=== PATIENT | female | born 1940 | race Caucasian/White ===

== ENCOUNTER → 2016-08-27 | Outpatient (CLI) | payer OTHER | LOC: FIMAGING 11:56 | PROVIDERS: ATTEND Physician Assistant Surgical | DX: M51.36 Other intervertebral disc degeneration, lumbar region (principal); M51.35 Other intervertebral disc degeneration, thoracolumbar region; M43.16 Spondylolisthesis, lumbar region; M12.88 Other specific arthropathies, not elsewhere classified, other specified site; M48.06 Spinal stenosis, lumbar region; M48.05 Spinal stenosis, thoracolumbar region; M99.73 Connective tissue and disc stenosis of intervertebral foramina of lumbar region; M51.26 Other intervertebral disc displacement, lumbar region ==

== ENCOUNTER → 2016-11-19 | Outpatient (CLI) | payer OTHER | LOC: FIMAGING 14:43 | PROVIDERS: ATTEND Family Medicine | DX: R91.1 Solitary pulmonary nodule (principal) ==

== ENCOUNTER → 2017-03-24 | Outpatient (CLI) | payer OTHER | LOC: FIMAGING 13:56 | PROVIDERS: ATTEND Family Medicine | DX: Z12.31 Encounter for screening mammogram for malignant neoplasm of breast (principal); Z80.3 Family history of malignant neoplasm of breast | CPT/HCPCS: G0202-52 ==

== ENCOUNTER 2017-09-29 17:47 | Inpatient (IN) | payer OTHER ==
[2017-09-29] MEDS ORDERED: NS 1,000 ML IV ONE (17:58)
[2017-09-29] MEDS ORDERED: IPRATROPIUM/ALBUTEROL 3 ML DEYVIAL IH ONE (17:58)
[2017-09-29] MEDS ORDERED: methylPREDNISolone SOD SUCC 125 MG/2 ML VIAL IVP ONE (17:58)
--- NOTE | 2017-09-29 18:01 | EDPHY ---
H & P Stated Complaint: hypoxia Time Seen by Provider: 09/29/17 17:52 HPI/ROS: CHIEF COMPLAINT: Pneumonia HISTORY OF PRESENT ILLNESS: The patient is a 77-year-old female with a history of COPD who wears 3 L of oxygen at baseline. She states that over last couple of days she has had to turn it up. She has not been febrile had a cough for chills. She presented to the urgent care today hers oxygen saturations were in the 70s. Chest x-ray revealed right upper and right lower lobe infiltrates. She was transferred here. She also complains of being very thirsty. She denies chest pain. REVIEW OF SYSTEMS: Constitutional: denies: chills, fever, recent illness, recent injury EENTM: denies: blurred vision, double vision, nose congestion Respiratory: See HPI Cardiac: denies: chest pain, irregular heart rate, lightheadedness, palpitations Gastrointestinal/Abdominal: denies: abdominal pain, diarrhea, nausea, vomiting, blood streaked stools Genitourinary: denies: dysuria, frequency, hematuria, pain Musculoskeletal: denies: joint pain, muscle pain Skin: denies: lesions, rash, jaundice, bruising Neurological: denies: headache, numbness, paresthesia, tingling, dizziness, weakness Hematologic/Lymphatic: denies: blood clots, easy bleeding, easy bruising Immunologic/allergic: denies: HIV/AIDS, transplant EXAM: GENERAL: Well-appearing, well-nourished and in no acute distress. HEAD: Atraumatic, normocephalic. EYES: Pupils equal round and reactive to light, extraocular movements intact, sclera anicteric, conjunctiva are normal. ENT: TMs normal, nares patent, oropharynx clear without exudates. Slightly dry mucous membranes. NECK: Normal range of motion, supple without lymphadenopathy or JVD. LUNGS: Right lower lobe rhonchi, no wheezing HEART: Regular rate and rhythm without murmurs, rubs or gallops. ABDOMEN: Soft, nontender, normoactive bowel sounds. No guarding, no rebound. No masses appreciated. BACK: No CVA tenderness, no spinal tenderness, step-offs or deformities EXTREMITIES: Normal range of motion, no pitting or edema. No clubbing or cyanosis. NEUROLOGICAL: Cranial nerves II through XII grossly intact. Normal speech, normal gait. 5/5 strength, normal movement in all extremities, normal sensation PSYCH: Normal mood, normal affect. SKIN: Warm, dry, normal turgor, no visible rashes or lesions. Source: Patient Exam Limitations: No limitations - Personal History Current Tetanus/Diphtheria Vaccine: Unsure Current Tetanus Diphtheria and Acellular Pertussis (TDAP): Unsure Tetanus Vaccine Date: unsure - Medical/Surgical History Hx Asthma: No Hx Chronic Respiratory Disease: Yes Hx Diabetes: No Hx Cardiac Disease: No Hx Renal Disease: No Hx Cirrhosis: No Hx Alcoholism: No Hx HIV/AIDS: No Hx Splenectomy or Spleen Trauma: No Other PMH: emphysema,pulmonary nodule, spinal surgery 07/11/14, L knee surgery 2009, HTN, depression. chronic back pain. hypoxemia, osteoarthritis, osteoporosis,. htn, breast neoplasm -malignant - Family History Significant Family History: No pertinent family hx - Social History Smoking Status: Former smoker Alcohol Use: Sober Drug Use: None Constitutional: Initial Vital Signs Temperature (C) 37.0 C 09/29/17 17:54 Heart Rate 92 09/29/17 17:54 Respiratory Rate 18 09/29/17 17:54 Blood Pressure 130/68 H 09/29/17 17:54 O2 Sat (%) 82 L 09/29/17 17:54 O2 Delivery Mode Nasal Cannula O2 (L/minute) 3 Allergies/Adverse Reactions: Sulfa (Sulfonamide Antibiotics) Allergy (Mild, Verified 08/08/14 17:32) Rash Home Medications: Medication Instructions Recorded Alendronate Sodium [Fosamax 70 MG 70 mg PO MO@0700 06/20/14 (*)] Calcium Carb/Vitamin D3/Vit K1 2 tab PO DAILY 06/20/14 [Citracal Soft Chew] DULoxetine [Cymbalta 60 MG (*)] 60 mg PO DAILY@18 06/20/14 Levothyroxine [Synthroid 50 mcg 50 mcg PO DAILY06 06/20/14 (*)] Losartan Potassium [Cozaar] 100 mg PO DAILY 06/20/14 Multivitamins [Multivitamin (*)] 1 tab PO DAILY 06/20/14 Simvastatin [Zocor 10 mg] 10 mg PO HS 06/20/14 amLODIPine BESYLATE [Norvasc 10 mg 10 mg PO DAILY 06/20/14 (*)] morphINE IR [morphINE IR 15 mg (*)] 15 mg PO Q8H #0 tab 07/13/14 fentaNYL [Fentanyl] 50 mcg TD Q72H 07/28/14 Aspirin EC [Aspirin EC 81 mg (*)] 81 mg PO DAILY 09/29/17 Cyclobenzaprine [Flexeril] 10 mg PO TID PRN 09/29/17 Omeprazole 40 mg PO DAILY 09/29/17 Medical Decision Making - Diagnostics Imaging: I viewed and interpreted images myself ED Course/Re-evaluation: Reviewed the patient's x-rays which could early show right upper and lower lobe pneumonia. She has an increased oxygen requirement in a fever and elevated white blood cell count. She meets sepsis criteria but not severe sepsis criteria. She has received fluids and antibiotics. We have paged the medical service for admission. Differential Diagnosis: Partial list of the Differential diagnosis considered include but were not limited to; pneumonia, COPD exacerbation, bronchitis and although unlikely based on the history and physical exam, I also considered acute coronary disease , CHF. Critical Care Time: Critical care time spent by me, Dr. Davenport exclusive with this patient was 35 minutes, exclusive of the PA time exclusive of procedures. The organ system that was at risk was pulmonary and I gave IV fluids, antibiotics, consultation and admission to prevent worsening of the patient's condition - Data Points Laboratory Results: Laboratory Results 09/29/17 17:30 09/29/17 17:30 09/29/17 09/29/17 09/29/17 18:03 17:30 17:30 WBC RBC Hgb Hct MCV MCH MCHC RDW Plt Count MPV Neut % (Auto) Lymph % (Auto) [place] % (Auto) Eos % (Auto) Baso % (Auto) Nucleat RBC Rel Count Absolute Neuts (auto) Absolute Lymphs (auto) Absolute Monos (auto) Absolute Eos (auto) Absolute Basos (auto) Absolute Nucleated RBC Immature Gran % Immature Gran # PT 12.5 SEC SEC (12.0-15.0) INR 0.91 (0.83-1.16) APTT 28.0 SEC SEC (23.0-38.0) VBG Lactic Acid 0.9 mmol/L mmol/L (0.7-2.1) Sodium 134 mEq/L L mEq/L (135-145) Potassium 4.7 mEq/L mEq/L (3.5-5.2) Chloride 95 mEq/L L mEq/L (97-110) Carbon Dioxide 27 mEq/l mEq/l (22-31) Anion Gap 12 mEq/L mEq/L (8-16) BUN 18 mg/dL mg/dL (7-23) Creatinine 0.7 mg/dL mg/dL (0.6-1.0) Estimated GFR > 60 Glucose 94 mg/dL mg/dL (70-100) Calcium 9.6 mg/dL mg/dL (8.5-10.4) Total Bilirubin 1.1 mg/dL mg/dL (0.1-1.4) Conjugated Bilirubin 0.3 mg/dL mg/dL (0.0-0.5) Unconjugated Bilirubin 0.8 mg/dL mg/dL (0.0-1.1) AST 28 IU/L IU/L (14-46) ALT 32 IU/L IU/L (9-52) Alkaline Phosphatase 90 IU/L IU/L (38-126) Total Protein 7.3 g/dL g/dL (6.3-8.2) Albumin 4.4 g/dL g/dL (3.5-5.0) 09/29/17 17:30 WBC 16.08 10^3/uL H 10^3/uL (3.80-9.50) RBC 4.23 10^6/uL 10^6/uL (4.18-5.33) Hgb 11.8 g/dL L g/dL (12.6-16.3) Hct 35.6 % L % (38.0-47.0) MCV 84.2 fL fL (81.5-99.8) MCH 27.9 pg pg (27.9-34.1) MCHC 33.1 g/dL g/dL (32.4-36.7) RDW 16.5 % H % (11.5-15.2) Plt Count 311 10^3/uL 10^3/uL (150-400) MPV 9.5 fL fL (8.7-11.7) Neut % (Auto) 87.7 % H % (39.3-74.2) Lymph % (Auto) 5.6 % L % (15.0-45.0) [place] % (Auto) 5.0 % % (4.5-13.0) Eos % (Auto) 0.0 % L % (0.6-7.6) Baso % (Auto) 0.1 % L % (0.3-1.7) Nucleat RBC Rel Count 0.0 % % (0.0-0.2) Absolute Neuts (auto) 14.10 10^3/uL H 10^3/uL (1.70-6.50) Absolute Lymphs (auto) 0.90 10^3/uL L 10^3/uL (1.00-3.00) Absolute Monos (auto) 0.81 10^3/uL H 10^3/uL (0.30-0.80) Absolute Eos (auto) 0.00 10^3/uL L 10^3/uL (0.03-0.40) Absolute Basos (auto) 0.02 10^3/uL 10^3/uL (0.02-0.10) Absolute Nucleated RBC 0.00 10^3/uL 10^3/uL (0-0.01) Immature Gran % 1.6 % H % (0.0-1.1) Immature Gran # 0.25 10^3/uL H 10^3/uL (0.00-0.10) PT INR APTT VBG Lactic Acid Sodium Potassium Chloride Carbon Dioxide Anion Gap BUN Creatinine Estimated GFR Glucose Calcium Total Bilirubin Conjugated Bilirubin Unconjugated Bilirubin AST ALT Alkaline Phosphatase Total Protein Albumin Medications Given: Discontinued Medications Albuterol/Ipratropium (Duoneb) 3 ml IH EDNOW ONE Stop: 09/29/17 17:59 Last Admin: 09/29/17 18:14 Dose: 3 ml Sodium Chloride (Ns) 1,000 mls @ 0 mls/hr IV ONCE ONE; Wide Open PRN Reason: Protocol Stop: 09/29/17 17:59 Last Admin: 09/29/17 18:13 Dose: 1,000 mls Levofloxacin/Dextrose (Levaquin 750 Mg (Premix)) 150 mls @ 100 mls/hr IV EDNOW ONE PRN Reason: Protocol Stop: 09/29/17 19:27 Last Admin: 09/29/17 18:36 Dose: 150 mls Methylprednisolone Sodium Succinate (Solu-Medrol) 125 mg IVP EDNOW ONE Stop: 09/29/17 17:59 Last Admin: 09/29/17 18:14 Dose: 125 mg Departure - Departure Disposition: [facility] Inpatient Acute Clinical Impression: Pneumonia Qualifiers: Pneumonia type: due to unspecified organism Laterality: right Lung location: unspecified part of lung Qualified Code(s): J18.9 - Pneumonia, unspecified organism Sepsis Qualifiers: Sepsis type: sepsis due to unspecified organism Qualified Code(s): A41.9 - Sepsis, unspecified organism Condition: Fair
[2017-09-29 18:04] LABS: PLATELET COUNT 311 10^3/uL (150-400)
[2017-09-29 18:12] LABS: INR 0.91 (0.83-1.16); PROTIME(PATIENT) 12.5 SEC (12.0-15.0)
[2017-09-29] MEDS ORDERED: ONDANSETRON DISINTEGRATING 4 MG TAB PO PRN (19:10)
[2017-09-29] MEDS ORDERED: ONDANSETRON 4 MG/2 ML VIAL IVP PRN (19:10)
[2017-09-29] MEDS ORDERED: ACETAMINOPHEN 325 MG TAB PO PRN (19:10)
[2017-09-29] MEDS ORDERED: ALBUTEROL 3 ML DEYVIAL IH PRN (19:10)
[2017-09-29] MEDS ORDERED: NS 1,000 ML IV SCH (19:15)
--- NOTE | 2017-09-29 19:18 | PDGENHP ---
History and Physical - Chief Complaint SOB - History of Present Illness The patient is a 77-year-old female with a history of COPD who wears 3 L of oxygen at baseline. She states that over last couple of days she has had to turn it up. She has not been febrile. She presented to the urgent care today hers oxygen saturations were in the 70s. Chest x-ray revealed right upper and right lower lobe infiltrates. She was transferred to our ED. She denies chest pain, palpitations, leg swelling, n/v/d. In the E.D. she was given IV fluids and started on Levaquin and Solumedrol. She is on 3 L O2 which is her baseline, but reports feeling SOB and O2 needs increase with activity. PMHx/PSHx: emphysema,pulmonary nodule, spinal surgery 07/11/14, L knee surgery 2009, HTN, depression. chronic back pain. hypoxemia, osteoarthritis, osteoporosis,. htn , breast neoplasm -malignant, hypothyroidism, chronic pain syndrome Social Hx: Former tobacco user FmHx: non contributory Data/Labs: Leukocytosis CXR: RUL and RLL infiltrates History Information - Allergies/Home Medication List Allergies/Adverse Reactions: Sulfa (Sulfonamide Antibiotics) Allergy (Mild, Verified 08/08/14 17:32) Rash Home Medications: Alendronate Sodium [Fosamax 70 MG (*)] 70 mg PO MO@0700 06/20/14 [Last Taken ] Calcium Carb/Vitamin D3/Vit K1 [Citracal Soft Chew] 2 tab PO DAILY 06/20/14 [ Last Taken 09/29/17] DULoxetine [Cymbalta 60 MG (*)] 60 mg PO DAILY@18 06/20/14 [Last Taken 09/28/17] Levothyroxine [Synthroid 50 mcg (*)] 50 mcg PO DAILY06 06/20/14 [Last Taken ] Losartan Potassium [Cozaar] 100 mg PO DAILY 06/20/14 [Last Taken 09/29/17] Multivitamins [Multivitamin (*)] 1 tab PO DAILY 06/20/14 [Last Taken 09/26/17] Simvastatin [Zocor 10 mg] 10 mg PO HS 06/20/14 [Last Taken 09/28/17] amLODIPine BESYLATE [Norvasc 10 mg (*)] 10 mg PO DAILY 06/20/14 [Last Taken ] fentaNYL [Fentanyl] 50 mcg TD Q72H 07/28/14 [Last Taken 09/28/17 08:00] Aspirin EC [Aspirin EC 81 mg (*)] 81 mg PO DAILY 09/29/17 [Last Taken 09/29/17] Cyclobenzaprine [Flexeril] 10 mg PO TID PRN 09/29/17 [Last Taken 09/28/17] Omeprazole 40 mg PO DAILY 09/29/17 [Last Taken 09/29/17] I have personally reviewed and updated: medical history, social history - Social History Smoking Status: Former smoker Alcohol Use: Sober Drug Use: None Review of Systems Review of Systems: ROS: 10pt was reviewed & negative except for what was stated in HPI & below Physical Exam Physical Exam: Temp Pulse Resp BP Pulse Ox 37.0 C 83 20 127/68 H 94 09/29/17 17:54 09/29/17 18:16 09/29/17 18:16 09/29/17 18:16 09/29/17 18:16 Constitutional: no apparent distress, appears nourished Eyes: PERRL, EOMI Ears, Nose, Mouth, Throat: hearing normal, dry mucous membranes Cardiovascular: regular rate and rhythym, No edema Respiratory: no respiratory distress, reduced air movement, expiratory wheeze Gastrointestinal: normoactive bowel sounds, soft, non-tender abdomen Genitourinary: no bladder fullness Skin: warm Musculoskeletal: generalized weakness Neurologic: AAOx3 Psychiatric: interacting appropriately, not anxious, not encephalopathic, thought process linear Lymph, Heme, Immunologic: No petechiae Lab Data & Imaging Review 09/29/17 17:30 09/29/17 17:30 WBC 16.08 10^3/uL (3.80-9.50) H 09/29/17 17:30 RBC 4.23 10^6/uL (4.18-5.33) 09/29/17 17:30 Hgb 11.8 g/dL (12.6-16.3) L 09/29/17 17:30 Hct 35.6 % (38.0-47.0) L 09/29/17 17:30 MCV 84.2 fL (81.5-99.8) 09/29/17 17:30 MCH 27.9 pg (27.9-34.1) 09/29/17 17:30 MCHC 33.1 g/dL (32.4-36.7) 09/29/17 17:30 RDW 16.5 % (11.5-15.2) H 09/29/17 17:30 Plt Count 311 10^3/uL (150-400) 09/29/17 17:30 MPV 9.5 fL (8.7-11.7) 09/29/17 17:30 Neut % (Auto) 87.7 % (39.3-74.2) H 09/29/17 17:30 Lymph % (Auto) 5.6 % (15.0-45.0) L 09/29/17 17:30 [place] % (Auto) 5.0 % (4.5-13.0) 09/29/17 17:30 Eos % (Auto) 0.0 % (0.6-7.6) L 09/29/17 17: Baso % (Auto) 0.1 % (0.3-1.7) L 09/29/17 17:30 Nucleat RBC Rel Count 0.0 % (0.0-0.2) 09/29/17 17:30 Absolute Neuts (auto) 14.10 10^3/uL (1.70-6.50) H 09/29/17 17:30 Absolute Lymphs (auto) 0.90 10^3/uL (1.00-3.00) L 09/29/17 17:30 Absolute Monos (auto) 0.81 10^3/uL (0.30-0.80) H 09/29/17 17:30 Absolute Eos (auto) 0.00 10^3/uL (0.03-0.40) L 09/29/17 17:30 Absolute Basos (auto) 0.02 10^3/uL (0.02-0.10) 09/29/17 17:30 Absolute Nucleated RBC 0.00 10^3/uL (0-0.01) 09/29/17 17:30 Immature Gran % 1.6 % (0.0-1.1) H 09/29/17 17:30 Immature Gran # 0.25 10^3/uL (0.00-0.10) H 09/29/17 17:30 PT 12.5 SEC (12.0-15.0) 09/29/17 17:30 INR 0.91 (0.83-1.16) 09/29/17 17:30 APTT 28.0 SEC (23.0-38.0) 09/29/17 17:30 VBG Lactic Acid 0.9 mmol/L (0.7-2.1) 09/29/17 18:03 Sodium 134 mEq/L (135-145) L 09/29/17 17:30 Potassium 4.7 mEq/L (3.5-5.2) 09/29/17 17:30 Chloride 95 mEq/L (97-110) L 09/29/17 17:30 Carbon Dioxide 27 mEq/l (22-31) 09/29/17 17:30 Anion Gap 12 mEq/L (8-16) 09/29/17 17:30 BUN 18 mg/dL (7-23) 09/29/17 17:30 Creatinine 0.7 mg/dL (0.6-1.0) 09/29/17 17:30 Estimated GFR > 60 09/29/17 17:30 Glucose 94 mg/dL (70-100) 09/29/17 17:30 Calcium 9.6 mg/dL (8.5-10.4) 09/29/17 17:30 Total Bilirubin 1.1 mg/dL (0.1-1.4) 09/29/17 17:30 Conjugated Bilirubin 0.3 mg/dL (0.0-0.5) 09/29/17 17:30 Unconjugated Bilirubin 0.8 mg/dL (0.0-1.1) 09/29/17 17:30 AST 28 IU/L (14-46) 09/29/17 17:30 ALT 32 IU/L (9-52) 09/29/17 17:30 Alkaline Phosphatase 90 IU/L (38-126) 09/29/17 17:30 Total Protein 7.3 g/dL (6.3-8.2) 09/29/17 17:30 Albumin 4.4 g/dL (3.5-5.0) 09/29/17 17:30 Assessment & Plan Assessment: #Community Acquired Pneumonia #Acute on Chronic Respiratory Failure #COPD with exacerbation #Leukocytosis #Dehydration #Hx of HTN #Chronic Pain Syndrome #Generalized Weakness Plan: Admit Inpatient cont Levaquin cont Solumedrol Schedule Bronchodilators Hold BP meds today in case BP drops cont appropriate home meds IVF, looks dry SCDs for DVT proph f/u cultures DNR, confirmed today
[2017-09-29] MEDS ORDERED: CYCLOBENZAPRINE 10 MG TAB PO PRN (20:33)
[2017-09-29] MEDS: fentaNYL 50 MCG PATCH TD SCH (21:54)
[2017-09-29] MEDS: IPRATROPIUM/ALBUTEROL 3 ML DEYVIAL IH SCH (22:27)
[2017-09-30] MEDS: methylPREDNISolone SOD SUCC 125 MG/2 ML VIAL IVP SCH ×3 (00:01→11:56)
[2017-09-30] MEDS: LEVOTHYROXINE 50 MCG TAB PO SCH (04:34)
[2017-09-30 05:06] LABS: PLATELET COUNT 255 10^3/uL (150-400)
[2017-09-30] MEDS: IPRATROPIUM/ALBUTEROL 3 ML DEYVIAL IH SCH ×4 (05:20→19:59)
[2017-09-30] MEDS: PANTOPRAZOLE SODIUM 40 MG TAB PO SCH (09:40)
[2017-09-30] MEDS: MULTIVITAMINS 1 EACH TAB PO SCH (09:41)
[2017-09-30] MEDS: ASPIRIN EC 81 MG TAB PO SCH (09:41)
[2017-09-30] MEDS: PRAVASTATIN SODIUM 20 MG TAB PO SCH ×3 (09:41→20:55)
[2017-09-30] MEDS: CALCIUM CARB W/VIT D 500 MG TAB PO SCH (09:41)
--- NOTE | 2017-09-30 13:01 | PDMN ---
Medical Necessity Medical necessity: est los>2mn for PNA, acute on chronic resp failure, COPD exacerbation, and dehydration; admit for IV abx and steroids, IVF, and scheduled nebs; comorbid chronic pain, htn; per order and H&P 09/29/17
--- NOTE | 2017-09-30 15:02 | HOSPPROG ---
Hospitalist Progress Note Assessment/Plan: 77 y/o female with chronic resp failure presents with: #Community Acquired Pneumonia #Acute on Chronic Respiratory Failure #COPD with exacerbation #Leukocytosis #Dehydration #Hx of HTN #Chronic Pain Syndrome #Generalized Weakness Plan: cont Levaquin change solumedrol to prednisone Schedule Bronchodilators continue to hold BP meds today cont appropriate home meds buff cap ivf SCDs for DVT proph f/u cultures DNR, confirmed today Continue inpatient care. Possible dc 10/01 if continues to improve Subjective: no fevers or chills. breathing is improving. Still feels very weak and unsteady. Objective: Vital Signs Temp Pulse Resp BP Pulse Ox 36.7 C 94 16 104/92 H 93 09/30/17 11:15 09/30/17 11:15 09/30/17 11:15 09/30/17 11:15 09/30/17 11:15 Laboratory Results 09/30/17 04:30 09/30/17 04:30 09/29/17 09/30/17 10/01/17 05:59 05:59 05:59 Intake Total 1325 350 Output Total 1100 700 Balance 225 -350 PT 12.5 SEC (12.0-15.0) 09/29/17 17:30 INR 0.91 (0.83-1.16) 09/29/17 17:30 - Physical Exam Constitutional: no apparent distress, appears nourished, not in pain Cardiovascular: regular rate and rhythym, no murmur, rub, or gallop Respiratory: no respiratory distress, no rales or rhonchi, clear to auscultation Gastrointestinal: normoactive bowel sounds, soft, non-tender abdomen, no palpable masses Neurologic: AAOx3, sensation intact bilaterally ICD10 Worksheet Patient Problems: Problems Problem Status Onset chronic disease mgmt/transitional care Acute S/P lumbar spinal fusion Acute 08/08/14 C. difficile diarrhea Acute Pneumonia Acute Sepsis Acute
--- NOTE | 2017-09-30 16:43 | ASMTCMCOM ---
CM Note CM Note Notes: Spoke w/pt re; homecare. PT/OT recommend homecare. Discussed with pt but she politely declines, states "things are too hectic" CM asked if pt thought she would be ok, she says they have a private caregiver that comes for 3hrs a day, 3 times a week to help them. Advised pt if she changes her mind, CM can set up homecare for her, pt verbalized understanding. DC Plan: Independent Date Signed: 09/30/2017 04:42 PM Electronically Signed By:Berenice Mendoza RN
[2017-09-30] MEDS: DULoxetine 60 MG CAP PO SCH (18:13)
[2017-10-01] MEDS: LEVOTHYROXINE 50 MCG TAB PO SCH (04:54)
[2017-10-01] MEDS: IPRATROPIUM/ALBUTEROL 3 ML DEYVIAL IH SCH ×4 (06:03→21:40)
[2017-10-01] MEDS: PANTOPRAZOLE SODIUM 40 MG TAB PO SCH (08:57)
[2017-10-01] MEDS: CALCIUM CARB W/VIT D 500 MG TAB PO SCH (08:57)
[2017-10-01] MEDS: predniSONE 20 MG TAB PO SCH (08:57)
[2017-10-01] MEDS: MULTIVITAMINS 1 EACH TAB PO SCH (08:57)
[2017-10-01] MEDS: ASPIRIN EC 81 MG TAB PO SCH (08:57)
[2017-10-01] MEDS: DULoxetine 60 MG CAP PO SCH (17:14)
--- NOTE | 2017-10-01 17:48 | CPEKG ---
Heart Rate: 100 RR Interval: 600 P-R Interval: 164 QRSD Interval: 86 QT Interval: 336 QTC Interval: 434 P [place]: 73 QRS [place]: 22 T Wave [place]: 73 EKG Severity - ABNORMAL ECG - EKG Impression: SINUS TACHYCARDIA EKG Impression: VENTRICULAR PREMATURE COMPLEX EKG Impression: PROBABLE LEFT ATRIAL ABNORMALITY EKG Impression: BORDERLINE R WAVE PROGRESSION, ANTERIOR LEADS Electronically Signed By: Glynn Tran 06-Oct-2017 10:40:21
--- NOTE | 2017-10-01 19:29 | HOSPPROG ---
Hospitalist Progress Note Assessment/Plan: #. Acute on chronic hypoxic respiratory failure - patient's baseline is 3L and has been able to be weaned down to her baseline. She has tolerated transition to prednisone 40mg daily. Continue current nebulizer regimen. #. Pneumonia - clinically improving. Continue current antibiotic therapy. #. Leukocytosis - improving with WBC from 16 to 11. #. HTN - controlled with current losartan and amlodipine. #. COPD - Continue current nebulizer management. #. Chronic LBP - continue current pain management regimen including narcotics. #. Hypothyroidism - continue current levothyroxine 50mg daily. #. Depression - Cymbalta. # DVT prophylaxis - Lovenox. #. Dispo - DNAR status. Patient expresses that she thinks she will be able for discharge tomorrow and already has home health established. Subjective: Patient states overall she is feeling better but still weak. She does think she will be ready to return home tomorrow. No subjective fevers or worsening dyspnea. Objective: Vital Signs Temp Pulse Resp BP Pulse Ox 36.9 C 97 16 140/80 H 92 10/01/17 17:23 10/01/17 17:18 10/01/17 17:18 10/01/17 17:18 10/01/17 17:18 Laboratory Results 09/30/17 04:30 09/30/17 04:30 09/30/17 10/01/17 10/02/17 05:59 05:59 05:59 Intake Total 1325 350 350 Output Total 1100 700 700 Balance 225 -350 -350 PT 12.5 SEC (12.0-15.0) 09/29/17 17:30 INR 0.91 (0.83-1.16) 09/29/17 17:30 - Physical Exam Constitutional: no apparent distress, appears nourished, not in pain Cardiovascular: regular rate and rhythym, no murmur, rub, or gallop Respiratory: no respiratory distress, no rales or rhonchi, clear to auscultation Gastrointestinal: normoactive bowel sounds, soft, non-tender abdomen, no palpable masses Genitourinary: No mtz in urethra Psychiatric: interacting appropriately, not anxious, not encephalopathic, thought process linear ICD10 Worksheet Patient Problems: Problems Problem Status Onset Pneumonia Acute Sepsis Acute chronic disease [facility]/transitional care Acute C. difficile diarrhea Acute S/P lumbar spinal fusion Acute 01/28/15
[2017-10-01] MEDS: PRAVASTATIN SODIUM 20 MG TAB PO SCH (20:30)
[2017-10-02] MEDS: IPRATROPIUM/ALBUTEROL 3 ML DEYVIAL IH SCH ×4 (04:49→20:53)
[2017-10-02] MEDS: LEVOTHYROXINE 50 MCG TAB PO SCH (05:21)
[2017-10-02] MEDS: ENOXAPARIN 40 MG/0.4 ML SYR SC SCH (08:08)
[2017-10-02] MEDS: CALCIUM CARB W/VIT D 500 MG TAB PO SCH (08:09)
[2017-10-02] MEDS: MULTIVITAMINS 1 EACH TAB PO SCH (08:09)
[2017-10-02] MEDS: PANTOPRAZOLE SODIUM 40 MG TAB PO SCH (08:09)
[2017-10-02] MEDS: ASPIRIN EC 81 MG TAB PO SCH (08:09)
[2017-10-02] MEDS: predniSONE 20 MG TAB PO SCH (08:16)
--- NOTE | 2017-10-02 13:16 | HOSPPROG ---
Hospitalist Progress Note Assessment/Plan: The patient is a 77-year-old female with a history of COPD who wears 3 L of oxygen at baseline. She states that over last couple of days she has had to turn it up. She has not been febrile. She presented to the urgent care today hers oxygen saturations were in the 70s. Chest x-ray revealed right upper and right lower lobe infiltrates. She was transferred to our ED. #. Acute on chronic hypoxic respiratory failure -O2 levels this afternoon stable -she is chronically on O2 #. Pneumonia/right sided -Levaquin -has hx of esophageal stricture with dilation -will ask ST to evaluate her swallowing #. Leukocytosis - improving #. anemia -follow #. HTN - controlled with current losartan and amlodipine. #. COPD - Continue current nebulizer management. #. Chronic LBP - continue current pain management regimen including narcotics. -asked PT to give her core strengthening exercises for abdomen #. Hypothyroidism - continue current levothyroxine 50mg daily. #. Depression - Cymbalta. # DVT prophylaxis - Lovenox. #. Plan: evaluate tomorrow again, not quite ready for dc today. Suspect she will be ready tomorrow. Will ask ST to evaluate. Subjective: Rsoa Maria is feeling better but not quite ready to go. Still short of breath. Objective: Vital Signs Temp Pulse Resp BP Pulse Ox 36.6 C 88 18 120/72 92 10/02/17 08:00 10/02/17 08:00 10/02/17 08:00 10/02/17 08:00 10/02/17 08:00 Laboratory Results 09/30/17 04:30 09/30/17 04:30 10/01/17 10/02/17 10/03/17 05:59 05:59 05:59 Intake Total 350 350 Output Total 700 1700 Balance -350 -1350 PT 12.5 SEC (12.0-15.0) 09/29/17 17:30 INR 0.91 (0.83-1.16) 09/29/17 17:30 - Physical Exam Constitutional: appears nourished, not in pain Eyes: PERRL Ears, Nose, Mouth, Throat: hearing normal Cardiovascular: regular rate and rhythym Respiratory: no respiratory distress, clear to auscultation Skin: warm, No normal color (pale) Musculoskeletal: generalized weakness Neurologic: AAOx3 Psychiatric: interacting appropriately, not anxious ICD10 Worksheet Patient Problems: Problems Problem Status Onset Pneumonia Acute Sepsis Acute chronic disease mgmt/transitional care Acute C. difficile diarrhea Acute S/P lumbar spinal fusion Acute 08/08/14
[2017-10-02] MEDS: oxyCODONE IR 5 MG TAB PO PRN (13:46)
[2017-10-02] MEDS ORDERED: predniSONE 20 MG TAB PO SCH (15:03)
[2017-10-02] MEDS: DULoxetine 60 MG CAP PO SCH (18:03)
[2017-10-02] MEDS: fentaNYL 50 MCG PATCH TD SCH (20:23)
[2017-10-02] MEDS: PRAVASTATIN SODIUM 20 MG TAB PO SCH (20:24)
[2017-10-03] MEDS: oxyCODONE IR 5 MG TAB PO PRN ×2 (01:48→12:24)
[2017-10-03] MEDS: LEVOTHYROXINE 50 MCG TAB PO SCH (05:45)
[2017-10-03] MEDS: IPRATROPIUM/ALBUTEROL 3 ML DEYVIAL IH SCH ×2 (06:08→11:36)
[2017-10-03] MEDS: PANTOPRAZOLE SODIUM 40 MG TAB PO SCH (07:43)
[2017-10-03] MEDS: CALCIUM CARB W/VIT D 500 MG TAB PO SCH (07:43)
[2017-10-03] MEDS: MULTIVITAMINS 1 EACH TAB PO SCH (07:43)
[2017-10-03] MEDS: ASPIRIN EC 81 MG TAB PO SCH (07:44)
[2017-10-03] MEDS: ENOXAPARIN 40 MG/0.4 ML SYR SC SCH (07:44)
[2017-10-03 08:17] VITALS: BP 132/88; PULSE 87; RESP 14; TEMP 98.3; O2SAT 89
--- NOTE | 2017-10-03 10:22 | HOSPPROG ---
Hospitalist Progress Note Assessment/Plan: The patient is a 77-year-old female with a history of COPD who wears 3 L of oxygen at baseline. She states that over last couple of days she has had to turn it up. She has not been febrile. She presented to the urgent care today hers oxygen saturations were in the 70s. Chest x-ray revealed right upper and right lower lobe infiltrates. She was transferred to our ED. #. Acute on chronic hypoxic respiratory failure -O2 levels this a.m are stable #. Pneumonia/right sided -Levaquin -has hx of esophageal stricture with dilation -will ask ST to evaluate her swallowing prior to dc -has some pain below the rib area on right side, can reproduce w palpation #. Leukocytosis - improving #. anemia -follow #. HTN - controlled with current losartan and amlodipine. #. COPD - patient states she has no formal diagnosis of this -she uses oxygen prn at home #. Chronic LBP - continue current pain management regimen including narcotics. -asked PT to give her core strengthening exercises for abdomen #. Hypothyroidism - continue current levothyroxine 50mg daily. #. Depression - Cymbalta. # DVT prophylaxis - Lovenox. #. Plan: dc home today, she has declined home care Subjective: Rosa Maria has some c/o right sided rib pain, no pain w inspiration or expiration Objective: Vital Signs Temp Pulse Resp BP Pulse Ox 36.8 C 87 14 132/88 H 89 L 10/03/17 08:00 10/03/17 08:00 10/03/17 08:00 10/03/17 08:00 10/03/17 08:00 Laboratory Results 09/30/17 04:30 09/30/17 04:30 10/02/17 10/03/17 10/04/17 05:59 05:59 05:59 Intake Total 350 300 Output Total 1700 Balance -1350 300 PT 12.5 SEC (12.0-15.0) 09/29/17 17:30 INR 0.91 (0.83-1.16) 09/29/17 17:30 - Physical Exam Constitutional: no apparent distress, appears nourished Eyes: PERRL Ears, Nose, Mouth, Throat: hearing normal Cardiovascular: regular rate and rhythym Respiratory: no respiratory distress Gastrointestinal: normoactive bowel sounds Skin: warm Neurologic: AAOx3 Psychiatric: interacting appropriately ICD10 Worksheet Patient Problems: Problems Problem Status Onset Pneumonia Acute Sepsis Acute C. difficile diarrhea Acute S/P lumbar spinal fusion Acute 08/08/14 chronic disease mgmt/transitional care Acute
--- NOTE | 2017-10-03 11:53 | GDS ---
[f rep st] DISCHARGE SUMMARY DISCHARGE DIAGNOSES: 1. Acute hypoxemic respiratory failure. 2. Right-sided pneumonia. 3. Leukocytosis. 4. Anemia. 5. Hypertension. 6. Chronic obstructive pulmonary disease, the patient says she has never actually been formally diagnosed with this. 7. Chronic low back pain. 8. Hypothyroidism. 9. Depression. HISTORY OF PRESENT ILLNESS: Briefly, the patient is a 77-year-old female with a history of COPD, who wears 3 L of oxygen at baseline. She states for the last couple days prior to admission, she had been short of breath. She has not been febrile. She presented at urgent care, and her oxygen levels were in the 70s. A chest x-ray revealed a right upper and right lower infiltrate. HOSPITAL COURSE: 1. Acute on chronic hypoxemic respiratory failure. Oxygen levels are stable on room air. 2. Pneumonia, right-sided. She is on Levaquin. Have asked Speech Therapy to evaluate her swallowing because she has had a history of an esophageal stricture that required dilation. 3. Leukocytosis, improving. 4. Anemia, to follow up with her PCP. 5. Hypertension, stable. 6. COPD. Patient says she has never had a formal diagnosis of this, but she does use oxygen as needed at home. 7. Chronic low back pain. Continue her home regimen. 8. Hypothyroidism, on Synthroid. 9. Depression, on Cymbalta. PENDING LABS AND TESTS: None. Preliminary blood cultures show no growth. Her respiratory panel PCR is negative. DISCHARGE MEDICATIONS: Please see the EMR. DISCHARGE CONDITION: Stable. Blood pressure is 132/88. Heart rate is 87. Respiratory rate is 14. O2 sats on room air 90%. Temperature is 36.8 Celsius. DISCHARGE INSTRUCTIONS: 1. Take Levaquin as instructed, to note that this can affect her tendons. 2. Take the prednisone as instructed. 3. Follow up with her PCP in regard to some right rib, right upper quadrant abdominal pain if it does not resolve. 4. If she develops fever, chills, chest pain, or shortness of breath, return to the ER. Greater than 30 minutes discharging and coordinating care. /[id number]/MODL MTDD
--- NOTE | 2017-10-03 15:39 | ASDISCHSUM ---
Discharge Information Plan Status:Home with No Needs Medically Cleared to Leave:10/03/2017 Discharge Date:10/03/2017 12:40 PM CM D/C Disposition:Home, Routine, Self-Care ADT D/C Disposition:Home, Routine, Self-Care Projected Discharge Date:10/03/2017 12:40 PM Transportation at D/C:Family Discharge Delay Reason: Follow-Up Date:10/03/2017 12:40 PM Discharge Slot:2 - 12:01 pm - 18:00 pm Final Diagnosis:Acute hypoxemic resp failure, right sided PNA, leukocytosis, anemia, HTN, COPD, [employer]idson low back pain, Hypothyroidism, depression Placement Information Patient Contact Information Contact Name:CHRISTINA Relationship: Address:[address] City:[place] Alternate Phone: [facility]/Zip Code:[place] [address] Email: Financial Information Financial Class:Medicare Primary Plan Desc:MEDICARE INPATIENT Primary Plan Number:[id number] Secondary Plan Desc:SUJEY Secondary Plan Number:[id number] Assessment Information LACE LACE Length of stay for Answers: 4-6 days current admission Acuity / Level of Answers: Yes Care: Did the patient have an inpatient admission? Comorbidities - select Answers: Chronic pulmonary disease all that apply Opioid dependence / Chronic pain Other Notes: HTN, chronic respirator y disease, hypothyroid # of Emergency department Answers: 1-2 visits in the last 6 months Social determinants Answers: Mental health diagnosis (anxiety, depression, pers onality disorders, etc.) Score: 18 Date Signed: 10/03/2017 03:39 PM Electronically Signed By:Leticia Feng RN [facility] CM Progress Note CM Note CM Note Notes: Spoke w/pt re; homecare. PT/OT recommend homecare. Discussed with pt but she politely declines, states "things are too hectic" CM asked if pt thought she would be ok, she says they have a private caregiver that comes for 3hrs a day, 3 times a week to help them. Advised pt if she changes her mind, CM can set up homecare for her, pt verbalized understanding. DC Plan: Independent Date Signed: 09/30/2017 04:42 PM Electronically Signed By:Berenice Mendoza RN [facility] Progress Note CM Note CM Note Notes: Reviewed chart, spoke with NARESH Lewis and Diane Thomson NP regarding discharge plan of care, pt's progress. Pt to discharge home today. PT/OT/[employer] [facility] rec home care, continued therapy. Met with pt to discuss home care options. Pt refused. Pt is currently receiving private duty, skilled caregiver assistance three times per week. Pt denies need for additional services. Pt wears oxygen at her baseline and states she has everything she needs. Pt to discharge home with family support. IM previously signed. Pt to follow up as directed. CM available for any further issues or concerns. Discharge plan: Home independent with family support and supplemental caregiver assistance Date Signed: 10/03/2017 03:38 PM Electronically Signed By:Leticia Feng RN Intervention Information Intervention Type:*IM-Signed Date of Service:10/01/2017 02:47 PM Patient Type:Inpatient Staff Member:Shama Garces Hours: Discipline: Severity: Comment:
[2017-10-04] MEDS ORDERED: ALENDRONATE SODIUM 70 MG TAB PO SCH (07:00)
== END 2017-10-03 12:40 | disposition home or self-care (01) | DRG 193 ==
LOC: EDUNIT# → OBSVTOIN 18:53 → F3E 20:04
PROVIDERS: ADMIT Family Medicine; ATTEND Family Medicine
DX: J18.8 Other pneumonia, unspecified organism (principal); J96.21 Acute and chronic respiratory failure with hypoxia; D64.9 Anemia, unspecified; I10 Essential (primary) hypertension; J44.9 Chronic obstructive pulmonary disease, unspecified; G89.29 Other chronic pain; E03.9 Hypothyroidism, unspecified; E86.0 Dehydration; F32.9 Major depressive disorder, single episode, unspecified; Z87.891 Personal history of nicotine dependence; Z66 Do not resuscitate
CPT/HCPCS: 71046-PO; 92523-GN; 96365; 97116-GP; 97162-GP; 97165-GO; 97530-GP; 97535-GO; G8978-GP-CJ; G8979-GP-CI; G8980-GP-CI; G8987-GO-CJ; G8988-GO-CI; G9165-GN-CH; G9166-GN-CH; G9167-GN-CH; J1650; J1956; J2930; J7512

== ENCOUNTER → 2017-09-29 | Outpatient (CLI) | payer OTHER | LOC: GIMAGING 15:58 | PROVIDERS: ATTEND Family Medicine | DX: J18.9 Pneumonia, unspecified organism (principal) | CPT/HCPCS: 71046-PO ==

== ENCOUNTER 2017-12-13 11:42 | Emergency (ER) | payer OTHER ==
[2017-12-13] MEDS ORDERED: NS 1,000 ML IV ONE (12:40)
--- NOTE | 2017-12-13 12:54 | EDPHY ---
H & P Time Seen by Provider: 12/13/17 12:07 HPI/ROS: HPI Diarrhea. Weakness. 77-year-old female by private vehicle. She reports she developed diarrhea yesterday morning. She describes this as watery. She has had multiple episodes. Denies any bloody or melenic stool. She is not on antibiotics. Denies any foreign travel or ill contacts. No change in diet. She has had some intermittent crampy lower abdominal discomfort. Denies any abdominal pain at this time. Loss of appetite but no significant nausea or vomiting. She reports she last ate a full solid meal on Wednesday. She has had some food intermittently and water intermittently since then. She comes to the emergency department complaining of being dehydrated and fatigued. ROS: Constitutional: No fever, no chills. As above. ENT: No sore throat. No nasal congestion or rhinorrhea. Respiratory: No cough. No shortness of breath. Cardiac: No chest pain, no palpitations. Gastrointestinal: No abdominal pain, no vomiting, as above. Genitourinary: No hematuria. No dysuria or increased frequency with urination. Musculoskeletal: No back pain. No neck pain. No myalgias or arthralgias. Skin: No rashes. Neurological: No headache. No focal weakness or altered sensation. Past medical history: Emphysema, back surgery, knee surgery, hypertension, depression, chronic pain, hypoxemia, on oxygen at night, osteoporosis, breast cancer. Social history: Nonsmoker. Here by herself. Denies alcohol. Physical Exam: General Appearance: Alert, no distress. This patient is responding to questions appropriately and in full sentences. This patient appears well- hydrated and well-nourished. Eyes: Pupils equal and round no pallor or injection. No lid edema, erythema or injection. ENT, Mouth: Mucous membranes are moist. The pharyngeal tissues are unremarkable. No edema or swelling. No asymmetry suggestive of abscess. No erythema or exudates. Respiratory: There are no retractions, lungs are clear to auscultation with good air movement bilaterally. Cardiovascular: Regular rate and rhythm. Borderline tachycardia. No murmur. Gastrointestinal: Abdomen is soft and nontender, no masses, bowel sounds normal. No focal tenderness at McBurney's point. No Louise sign. Neurological: Motor sensory function is grossly intact. Cranial nerves are normal. Gait is normal. Skin: Warm and dry, no rashes. Musculoskeletal: Neck is supple and nontender. Extremities are symmetrical. All joints range without pain or impingement. Psychiatric: No agitation. No depression. Database: EKG: Imaging: Procedures: Emergency department course: IV placed. Vital signs reviewed. She was mildly tachycardic and tachypneic in triage. Afebrile. She has a benign abdomen. She will be started on IV normal saline with 1 L to be given over the next 1-2 hours. At this time she does not require any IV pain medications or antiemetics. Electrolytes will be checked and a stool sample sent for analysis if available. 2:00 p.m., patient re-evaluated. Resting comfortably at this time. She has not had any further diarrhea since being in the emergency department. She has been tolerating oral fluids without issue. She has been up and ambulatory to the bathroom with a normal gait. Repeat abdominal exam she is soft, nontender nondistended. At this time she feels comfortable going home and I feel she is safe for discharge. I explained that if she produces a stool sample she can return this to the emergency department I will send it for analysis. Otherwise , explained importance of keeping well hydrated with an electrolyte solution. I will prescribe her Zofran for nausea. Follow-up and return to emergency department precautions were thoroughly reviewed with her. All of her questions were answered. She was discharged from the emergency department in good condition. Differential Diagnosis: The differential diagnosis on this patient includes but is not limited to food borne illness, viral enteritis. Entero hemorrhagic E coli, inflammatory bowel disease unlikely. This represents a partial list of diagnoses considered. These considerations are based on history, physical exam, past history, reassessment and diagnostic testing. Smoking Status: Former smoker Constitutional: Initial Vital Signs Temperature (C) 36.9 C 12/13/17 11:50 Heart Rate 115 H 12/13/17 11:50 Respiratory Rate 24 H 12/13/17 11:50 Blood Pressure 134/74 H 12/13/17 11:50 O2 Sat (%) 93 12/13/17 11:50 O2 Delivery Mode Room Air Allergies/Adverse Reactions: Sulfa (Sulfonamide Antibiotics) Allergy (Mild, Verified 12/13/17 11:46) Rash Home Medications: Medication Instructions Recorded Alendronate Sodium [Fosamax 70 MG 70 mg PO MO@0700 06/20/14 (*)] Calcium Carb/Vitamin D3/Vit K1 2 tab PO DAILY 06/20/14 [Citracal Soft Chew] DULoxetine [Cymbalta 60 MG (*)] 60 mg PO DAILY@18 06/20/14 Levothyroxine [Synthroid 50 mcg 50 mcg PO DAILY06 06/20/14 (*)] Losartan Potassium [Cozaar] 100 mg PO DAILY 06/20/14 Multivitamins [Multivitamin (*)] 1 tab PO DAILY 06/20/14 Simvastatin [Zocor 10 mg] 10 mg PO HS 06/20/14 amLODIPine BESYLATE [Norvasc 10 mg 10 mg PO DAILY 06/20/14 (*)] morphINE IR [morphINE IR 15 mg (*)] 15 mg PO Q8H #0 tab 07/13/14 fentaNYL [Fentanyl] 50 mcg TD Q72H 07/28/14 Aspirin EC [Aspirin EC 81 mg (*)] 81 mg PO DAILY 09/29/17 Medical Decision Making - Data Points Laboratory Results: Laboratory Results 12/13/17 12:50 12/13/17 12:50 Medications Given: Discontinued Medications Sodium Chloride (Ns) 1,000 mls @ 0 mls/hr IV EDNOW ONE; Wide Open PRN Reason: Protocol Stop: 12/13/17 12:41 Last Admin: 12/13/17 13:01 Dose: 1,000 mls Departure - Departure Disposition: Home, Routine, Self-Care Clinical Impression: Diarrhea Condition: Good Instructions: Acute Diarrhea (ED) Additional Instructions: Read and follow provided instructions. Follow-up with your primary care physician in 1-2 days for re-evaluation as needed. Take medication as prescribed for nausea. Keep well hydrated as discussed. A good fluid to drink is Gatorade mixed with water in a 1-1 dilution over ice. Return to the emergency department for vomiting and inability to keep fluids down despite medications, blood in your stool, fever or other serious concerns. Referrals: Ly Ferreira MD [Primary Care Provider] - As per Instructions
[2017-12-13 13:20] LABS: PLATELET COUNT 313 10^3/uL (150-400)
[2017-12-13 14:38] VITALS: BP 137/86
== END 2017-12-13 14:53 | disposition home or self-care (01) ==
DX: R19.7 Diarrhea, unspecified (principal); I10 Essential (primary) hypertension; E86.9 Volume depletion, unspecified; Z79.82 Long term (current) use of aspirin; Z85.3 Personal history of malignant neoplasm of breast; Z87.891 Personal history of nicotine dependence

== ENCOUNTER → 2017-12-21 | Outpatient (CLI) | payer OTHER | LOC: FIMAGING 10:29 | PROVIDERS: ATTEND Physician Assistant | DX: M41.26 Other idiopathic scoliosis, lumbar region (principal); M51.26 Other intervertebral disc displacement, lumbar region; M51.36 Other intervertebral disc degeneration, lumbar region; M51.35 Other intervertebral disc degeneration, thoracolumbar region; M51.37 Other intervertebral disc degeneration, lumbosacral region; M48.061 Spinal stenosis, lumbar region without neurogenic claudication; M48.07 Spinal stenosis, lumbosacral region; M48.05 Spinal stenosis, thoracolumbar region; M51.24 Other intervertebral disc displacement, thoracic region ==

== ENCOUNTER → 2018-03-03 | Outpatient (CLI) | payer OTHER | LOC: FIMAGING 11:48 | PROVIDERS: ATTEND Physician Assistant Surgical | DX: Z98.1 Arthrodesis status (principal); M51.37 Other intervertebral disc degeneration, lumbosacral region; M41.26 Other idiopathic scoliosis, lumbar region; M53.86 Other specified dorsopathies, lumbar region; M48.05 Spinal stenosis, thoracolumbar region ==

== ENCOUNTER → 2018-05-06 | Outpatient (CLI) | payer OTHER | LOC: FIMAGING 13:34 | PROVIDERS: ATTEND Family Medicine | DX: Z12.31 Encounter for screening mammogram for malignant neoplasm of breast (principal) ==